=== PATIENT | female | born 1965 | race Asian ===

== ENCOUNTER 2018-09-18 14:18 | Outpatient (CLI) | payer BC ==
--- NOTE | 2018-09-18 14:58 | Mammography Report ---
BILATERAL DIGITAL SCREENING MAMMOGRAM with CAD: 09/18/18 14:18:00 CLINICAL: Routine screening. COMPARISON:09/26/11 FINDINGS: The breasts are mostly fatty with a stable fibroglandular pattern. No mass, architectural distortion or suspicious calcifications. IMPRESSION: No mammographic evidence of malignancy. BI-RADS CATEGORY: 1 - - Negative RECOMMENDATION: Routine mammographic screening in one year. COMMENT: Patient follow-up letters are generated by our [employer] application.
== END 2018-09-18 14:19 | disposition home or self-care (01) ==
LOC: SPVWC 14:18
PROVIDERS: ATTEND Internal Medicine
DX: Z12.31 Encounter for screening mammogram for malignant neoplasm of breast (principal)
CPT/HCPCS: 77067